=== PATIENT | male | born 1945 | race Two or more races ===

== ENCOUNTER → 2018-10-04 19:55 | Outpatient (CLI) | payer MEDICARE, BC | END | disposition home or self-care (01) | LOC: D.LABREF 19:55 | PROVIDERS: ATTEND Urology | DX: N39.0 Urinary tract infection, site not specified (principal) ==

== ENCOUNTER 2018-10-21 07:20 | Day surgery (SDC) | payer MEDICARE, BC ==
[2018-10-20 09:54] LABS: HEMATOCRIT 41.3 % (42.0-54.0); HEMOGLOBIN 13.6 g/dL (13.5-17.5); MCH 28.5 pg (26.0-34.0); MCHC 32.9 g/dL (31.0-37.0); MCV 86.4 fL (80.0-100.0); MEAN PLATELET VOLUME 9.4 fL (7.4-10.4); RBC 4.78 10x6/uL (4.20-6.10); RDW 14.4 % (11.5-14.5); WBC 9.4 10x3/uL (4.8-10.8)
[2018-10-20 10:08] LABS: CALC OSMOLALITY 279 mosm/kg (275-300); CALCIUM 8.4 mg/dL (8.5-10.1); CARBON DIOXIDE 30.8 mmol/L (21.0-32.0); CHLORIDE - SERUM 103 mmol/L (98-107); GLUCOSE 98 mg/dL (74-106); POTASSIUM - SERUM 3.2 mmol/L (3.5-5.1); SODIUM 140 mmol/L (136-145); UREA NITROGEN 14 mg/dL (7-18); eGFR NON AFRICAN AMERICAN 78 mL/min (90-120)
[~2018-10-21] VITALS: Ht 180.3 cm; Wt 156.5 kg
[~2018-10-21 07:20] MED LIST: AMBIEN10 MG PO; K-DUR20 MEQ PO; LASIX40 MG PO; NUVIGIL250 MG PO; PROZAC20 MG PO
[2018-10-21] MEDS ORDERED: HCTZ25 MG PO (09:06)
[2018-10-21 09:15] VITALS: BP 153/84; Ht 180.3 cm; Wt 156.5 kg
--- NOTE | 2018-10-21 12:17 | OP ---
PATIENT NAME: YOEL RING MEDICAL RECORD: [id number] :45 LOCATION:[facility] ADMISSION DATE: SURGEON: FERMIN GARZON MD DATE OF OPERATION: 10/21/2018 SURGEON: Fermin Garzon MD ANESTHESIA: TIVA by Jessie Blanchard CRNA. 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 IPSS equals 17. Quality of life is 4 with tamsulosin and finasteride. PVR 498 mL. DALILA 50 gram prostate. PROCEDURE: UroLift times 6, bladder stone removal. FINDINGS: Long lateral lobes, which are obstructive. No median lobe. Vascular prostatic urethra. Heavily trabeculated bladder with cellules, diverticula, and bladder stones. No bladder tumors. BLOOD LOSS: Minimal. CLINICAL HISTORY: This is a 73-year-old male, who came to see me about obstructive BPH voiding symptoms. He has been on Proscar and tamsulosin for over 2 years. The tamsulosin does make him dizzy. When we scanned his bladder after voiding, his postvoid residual was almost 500 mL. He has had an indwelling Martinez catheter since the office visit. He comes now to have the UroLift procedure done to treat the urinary retention. He is not allergic to any medications. He was given Ancef 2 grams tactical air control party to the OR. Last night, the patient developed gross hematuria and he removed his catheter himself as they got plugged up. He says he is voiding on his own. DESCRIPTION OF PROCEDURE: The patient was given IV sedation. He was then placed into the lithotomy position and prepped and draped. The UroLift scope was introduced. Findings are as outlined above. He has long lateral lobes, which are obstructive. In the bladder, we saw numerous small little bladder stones. I irrigated out and successfully drained out all of these bladder stones in turn. We then applied the UroLift units. The first units were placed at the bladder neck level, about 1.5 cm distal to the bladder neck. These were placed, one on each side, in the anterolateral sulcus. We then placed 2 units at the level of the verumontanum, again at the anterolateral sulcus. Looking in with the obturator, the mid prostatic urethra was still obstructive. We placed 2 more units at the mid prostatic urethra at the mid height between the anterior and posterior valenzuela. One unit was placed on each side. This gave a total of 6 units of UroLift. The prostatic urethra was now opened in the anterior urethral channel. There was a significant amount of bleeding from the highly vascular prostate. I inserted a 16-American Martinez catheter back into the bladder. Balloon was inflated with 10 cc of sterile water. I will see him back next week to remove the Martinez catheter for a voiding trial. TRANSINT:[id number] Voice Confirmation ID: [id number] DOCUMENT ID: [id number] OPERATIVE REPORT [id number] YOEL RING, FERMIN Malave MD at 1217 CC: [id number] DICTATION DATE: 10/21/18 1124 [address] RUNNER: 10/21/18 1213 [id number] [place] [address]
--- NOTE | 2018-10-21 14:08 | NUR ---
1305 ALL DC CRITERIA MET. CHANGED TO LEG BAG. ALL DC INSTRUCTIONS GIVEN. SCRIPT CALLED IN TO PHARMACY PER REQUEST. FOLLOW UP APPOINTMENT GIVEN. VOICES NO OTHER NEEDS. TAKEN DOWNSTAIRS VIA W/C AND ASSISTED TO CAR WITH . ADVISED TO CALL OR COME BACK IF ANY PROBLEMS.
== END 2018-10-21 13:05 | disposition home or self-care (01) ==
LOC: D.OPS 07:20 → EDBD 10:45 → D.OPS 13:05
PROVIDERS: Anesthesiology; ATTEND Urology
DX: N40.1 Benign prostatic hyperplasia with lower urinary tract symptoms (principal); N13.8 Other obstructive and reflux uropathy; N21.0 Calculus in bladder
CPT/HCPCS: C9740; 52310

== ENCOUNTER 2019-05-13 12:47 | Emergency (ER) | payer MEDICARE, BC ==
[~2019-05-13] VITALS: Ht 180.3 cm; Wt 161.4 kg
[~2019-05-13 12:47] MED LIST changes: +HCTZ25 MG PO
[2019-05-13 13:00] VITALS: Ht 180.3 cm; Wt 161.4 kg
[2019-05-13 14:21] LABS: BASOPHILS 0.1 % (0-2); EOSINOPHILS 2.6 % (0-7); HEMATOCRIT 40.6 % (42.0-54.0); IMMATURE GRANULOCYTES 0.4 % (0-5); LYMPHOCYTES 16.6 % (15-50); MCH 28.1 pg (26.0-34.0); MCV 87.9 fL (80.0-100.0); MEAN PLATELET VOLUME 9.4 fL (7.4-10.4); MONOCYTES 9.1 % (2-11); NEUTROPHILS 71.2 % (40-80); PLATELET COUNT 178 10x3/uL (130-400); RBC 4.62 10x6/uL (4.20-6.10); RDW 15.6 % (11.5-14.5); WBC 9.2 10x3/uL (4.8-10.8)
[2019-05-13 14:26] LABS: CALC OSMOLALITY 284 mosm/kg (275-300); CALCIUM 8.5 mg/dL (8.5-10.1); CARBON DIOXIDE 30.3 mmol/L (21.0-32.0); CHLORIDE - SERUM 105 mmol/L (98-107); GLUCOSE 95 mg/dL (74-106); POTASSIUM - SERUM 3.9 mmol/L (3.5-5.1); SODIUM 142 mmol/L (136-145); UREA NITROGEN 19 mg/dL (7-18); eGFR NON AFRICAN AMERICAN 78 mL/min (90-120)
[2019-05-13 14:29] LABS: PROTIME 13.2 SECONDS (11.6-15.0)
[2019-05-13 14:32] LABS: ALBUMIN 2.9 g/dL (3.4-5.0); ALKALINE PHOSPHATASE 93 U/L (30-120); ALT (SGPT) 16 U/L (10-68); BILIRUBIN - TOTAL 0.34 mg/dL (0.2-1.3); C-REACTIVE PROTEIN 2.4 mg/dL (0.0-0.9); PROTEIN - SERUM 7.2 g/dL (6.4-8.2)
[2019-05-13 16:07] VITALS: BP 114/60
== END 2019-05-13 16:08 | disposition home or self-care (01) ==
LOC: D.ER 12:47
PROVIDERS: Emergency Medicine
DX: R51 Headache (principal); Z84.89 Family history of other specified conditions; I10 Essential (primary) hypertension; I48.91 Unspecified atrial fibrillation; Z86.73 Personal history of transient ischemic attack (TIA), and cerebral infarction without residual deficits

== ENCOUNTER 2019-09-19 15:53 | Inpatient (IN) | payer MEDICARE, BC ==
[~2019-09-19] VITALS: Ht 180.3 cm; Wt 163.3 kg
[2019-09-19] VITALS (12 sets, daily range): BP systolic 88–131; BP diastolic 54–83
[2019-09-19 16:44] LABS: BASOPHILS 0.1 % (0-2); EOSINOPHILS 0.6 % (0-7); HEMATOCRIT 40.8 % (42.0-54.0); HEMOGLOBIN 13.1 g/dL (13.5-17.5); IMMATURE GRANULOCYTES 0.4 % (0-5); LYMPHOCYTES 5.1 % (15-50); MCH 28.1 pg (26.0-34.0); MCHC 32.1 g/dL (31.0-37.0); MCV 87.4 fL (80.0-100.0); MEAN PLATELET VOLUME 9.6 fL (7.4-10.4); NEUTROPHILS 81.8 % (40-80); RBC 4.67 10x6/uL (4.20-6.10); RDW 15.3 % (11.5-14.5); WBC 13.9 10x3/uL (4.8-10.8)
[2019-09-19 16:46] LABS: PLATELET COUNT 225 10x3/uL (130-400)
[2019-09-19 16:51] LABS: APTT 27.6 SECONDS (22.8-39.4); INR 1.07 (0.85-1.17); PROTIME 13.9 SECONDS (11.6-15.0)
[2019-09-19 17:13] LABS: ALBUMIN 2.3 g/dL (3.4-5.0); ALKALINE PHOSPHATASE 94 U/L (30-120); ALT (SGPT) 43 U/L (10-68); BILIRUBIN - TOTAL 0.36 mg/dL (0.2-1.3); CALC OSMOLALITY 275 mosm/kg (275-300); CALCIUM 8.2 mg/dL (8.5-10.1); CARBON DIOXIDE 32.3 mmol/L (21.0-32.0); CHLORIDE - SERUM 98 mmol/L (98-107); CKMB 0.5 U/L (0.0-3.6); CREATINE KINASE 81 UL (21-232); CREATININE - SERUM 1.5 mg/dL (0.6-1.3); GLUCOSE 107 mg/dL (74-106); PROTEIN - SERUM 7.1 g/dL (6.4-8.2); SODIUM 135 mmol/L (136-145); TROPONIN-I < 0.017 ng/mL (0.000-0.060); UREA NITROGEN 30 mg/dL (7-18); eGFR NON AFRICAN AMERICAN 49 mL/min (90-120)
[2019-09-19 17:19] LABS: POTASSIUM - SERUM 2.7 mmol/L (3.5-5.1)
[2019-09-20] VITALS (9 sets, daily range): BP systolic 99–155; BP diastolic 53–80; BMI 48.9
[2019-09-20 00:32] LABS: % SATURATION 7 % (15-55); IRON 18 ug/dl (35-150); TOTAL IRON BIND CAPACITY 231 ug/dl (260-445); UNSAT IRON BIND CAPACITY 213 ug/dl (150-375)
[2019-09-20 00:48] LABS: CKMB 0.6 U/L (0.0-3.6); CREATINE KINASE 80 UL (21-232); TROPONIN-I < 0.017 ng/mL (0.000-0.060)
--- NOTE | 2019-09-20 02:25 | NUR ---
PT REQUEST ASSISTANCE TO RESTROOM. REFUSES TO ATTEMPT URINAL OR BEDSIDE COMMODE DESPITE WARNINGS HE MIGHT FALL. ASSISTED PT TO WHEELCHAIR AND TO BATHROOM. PT UNSTEADY BUT DOES TRANSITION FROM BED TO CHAIR, CHAIR TO COMMODE, AND BACK TO BED.
[2019-09-20 04:41] LABS: BASOPHILS 0.1 % (0-2); EOSINOPHILS 0.7 % (0-7); HEMATOCRIT 39.4 % (42.0-54.0); HEMOGLOBIN 12.5 g/dL (13.5-17.5); IMMATURE GRANULOCYTES 0.4 % (0-5); LYMPHOCYTES 5.6 % (15-50); MCH 28.1 pg (26.0-34.0); MCHC 31.7 g/dL (31.0-37.0); MCV 88.5 fL (80.0-100.0); MEAN PLATELET VOLUME 9.5 fL (7.4-10.4); NEUTROPHILS 84.2 % (40-80); PLATELET COUNT 217 10x3/uL (130-400); RBC 4.45 10x6/uL (4.20-6.10); RDW 15.3 % (11.5-14.5); WBC 13.6 10x3/uL (4.8-10.8)
--- NOTE | 2019-09-20 05:00 | NUR ---
RESTING QUIETLY WITH EYES CLOSED. RESP. EVEN AND UNLAB. NO DISTRESS NOTED.
[2019-09-20 05:22] LABS: ALBUMIN 2.1 g/dL (3.4-5.0); ALKALINE PHOSPHATASE 89 U/L (30-120); ALT (SGPT) 38 U/L (10-68); BILIRUBIN - TOTAL 0.32 mg/dL (0.2-1.3); CALC OSMOLALITY 276 mosm/kg (275-300); CALCIUM 7.6 mg/dL (8.5-10.1); CARBON DIOXIDE 31.7 mmol/L (21.0-32.0); CHLORIDE - SERUM 98 mmol/L (98-107); CKMB 0.9 U/L (0.0-3.6); CREATINE KINASE 87 UL (21-232); CREATININE - SERUM 1.2 mg/dL (0.6-1.3); GLUCOSE 151 mg/dL (74-106); MAGNESIUM - SERUM 2.1 mg/dL (1.8-2.4); PHOSPHOROUS 2.8 mg/dL (2.5-4.9); PROTEIN - SERUM 6.7 g/dL (6.4-8.2); SODIUM 135 mmol/L (136-145); UREA NITROGEN 24 mg/dL (7-18); eGFR NON AFRICAN AMERICAN 63 mL/min (90-120)
[2019-09-20 05:23] LABS: POTASSIUM - SERUM 2.7 mmol/L (3.5-5.1); TROPONIN-I < 0.017 ng/mL (0.000-0.060)
--- NOTE | 2019-09-20 05:47 | NUR ---
POTASSIUM 2.7 STILL ORAL POTASSIUM 20MEQ GIVEN. PT STILL HAS POTASSIUM IN IV BAG.
--- NOTE | 2019-09-20 07:22 | NUR ---
ASSUMED CARE OF PT. SITTING UP IN WC AT BS. C/O "MILD ABD PAIN" VSS. RESP EVEN/UNALBORED. SKIN W/D/P. NAD NOTED
[2019-09-20 12:18] LABS: CKMB 0.6 U/L (0.0-3.6); CREATINE KINASE 80 UL (21-232); TROPONIN-I < 0.017 ng/mL (0.000-0.060)
--- NOTE | 2019-09-20 14:30 | NUR ---
BLOOD COMPLTED WITHOUT ADVERSE REACTIONS NOTED.
--- NOTE | 2019-09-20 14:37 | NUR ---
report to jenny young
--- NOTE | 2019-09-20 14:50 | NUR ---
TRANSFER FROM ER BY W/C. JIGNESHINTED TO ROOM. CALL LIGHT IN REACH. WILL CONT. PLAN OF CARE.
[2019-09-20 15:38] LABS: MAGNESIUM - SERUM 2.2 mg/dL (1.8-2.4)
[2019-09-20 15:45] LABS: POTASSIUM - SERUM 3.5 mmol/L (3.5-5.1)
--- NOTE | 2019-09-20 19:45 | NUR ---
REPORT RECEIVED AND ROUNDING COMPLETE. PAITENT SITTING UP IN BED. PAITENT SHOWS NO S/SX OF DISTRESS AT THIS TIME. RIGHT FOREARM PIV RUNNING FUILDS AT THSI TIME. NO NEEDS, CALL LIGTH WITHIN REACH AND BED IN LOWEST LOCKED POSITION.
[2019-09-21 04:34] VITALS: BP 120/77
--- NOTE | 2019-09-21 06:14 | NUR ---
PATIENT ASKED ME TO LISTEN, HE IS HAS EX- WHEEZING BILATERAL UPPER. WILL PASS ON TO DAY SHIFT
[2019-09-21 06:46] LABS: ALKALINE PHOSPHATASE 89 U/L (30-120); ALT (SGPT) 30 U/L (10-68); BILIRUBIN - TOTAL 0.35 mg/dL (0.2-1.3); CALCIUM 7.4 mg/dL (8.5-10.1); CARBON DIOXIDE 30.4 mmol/L (21.0-32.0); CHLORIDE - SERUM 100 mmol/L (98-107); GLUCOSE 110 mg/dL (74-106); MAGNESIUM - SERUM 2.1 mg/dL (1.8-2.4); POTASSIUM - SERUM 3.3 mmol/L (3.5-5.1); PROTEIN - SERUM 6.3 g/dL (6.4-8.2); SODIUM 135 mmol/L (136-145); UREA NITROGEN 16 mg/dL (7-18); eGFR NON AFRICAN AMERICAN 78 mL/min (90-120)
[2019-09-21 06:47] LABS: CALC OSMOLALITY 271 mosm/kg (275-300)
[2019-09-21 06:53] LABS: BASOPHILS 0.1 % (0-2); HEMATOCRIT 38.6 % (42.0-54.0); HEMOGLOBIN 11.9 g/dL (13.5-17.5); IMMATURE GRANULOCYTES 0.9 % (0-5); LYMPHOCYTES 6.5 % (15-50); MCH 27.7 pg (26.0-34.0); MCHC 30.8 g/dL (31.0-37.0); MCV 89.8 fL (80.0-100.0); MEAN PLATELET VOLUME 9.8 fL (7.4-10.4); MONOCYTES 7.5 % (2-11); PLATELET COUNT 213 10x3/uL (130-400); RDW 15.7 % (11.5-14.5); WBC 13.4 10x3/uL (4.8-10.8)
--- NOTE | 2019-09-21 08:00 | NUR ---
LEAVING FOR SBFT BY W/C.
[2019-09-21 11:00] VITALS: BP 137/83
[2019-09-21 13:30] VITALS: Ht 180.3 cm; Wt 163.3 kg
--- NOTE | 2019-09-21 14:58 | NUR ---
IV RESTARTED TO RIGHT AC WITH 20 GAUGE CATH X 1 STICK BY ANDREZ TAPIA. LINE IS PATENT.
[2019-09-21 15:00] VITALS: BP 104/57
[2019-09-21 20:00] VITALS: BP 106/58
--- NOTE | 2019-09-21 20:00 | NUR ---
CARDIZEM DRIP STOPPED. 64 HR CONTROLLED AFIB.
[2019-09-22 04:00] VITALS: BP 114/62
[2019-09-22 06:34] LABS: BASOPHILS 0.1 % (0-2); EOSINOPHILS 1.3 % (0-7); HEMATOCRIT 38.9 % (42.0-54.0); IMMATURE GRANULOCYTES 1.3 % (0-5); LYMPHOCYTES 4.9 % (15-50); MCH 27.8 pg (26.0-34.0); MCHC 30.8 g/dL (31.0-37.0); MCV 90.3 fL (80.0-100.0); MEAN PLATELET VOLUME 9.7 fL (7.4-10.4); MONOCYTES 7.2 % (2-11); NEUTROPHILS 85.2 % (40-80); RBC 4.31 10x6/uL (4.20-6.10); RDW 15.9 % (11.5-14.5); WBC 15.1 10x3/uL (4.8-10.8)
[2019-09-22 06:35] LABS: PLATELET COUNT 297 10x3/uL (130-400)
[2019-09-22 06:44] LABS: ALKALINE PHOSPHATASE 106 U/L (30-120); ALT (SGPT) 29 U/L (10-68); BILIRUBIN - TOTAL 0.22 mg/dL (0.2-1.3); CALC OSMOLALITY 279 mosm/kg (275-300); CALCIUM 8.3 mg/dL (8.5-10.1); CARBON DIOXIDE 28.5 mmol/L (21.0-32.0); CHLORIDE - SERUM 105 mmol/L (98-107); GLUCOSE 118 mg/dL (74-106); MAGNESIUM - SERUM 2.2 mg/dL (1.8-2.4); POTASSIUM - SERUM 3.6 mmol/L (3.5-5.1); PROTEIN - SERUM 6.6 g/dL (6.4-8.2); SODIUM 139 mmol/L (136-145); UREA NITROGEN 15 mg/dL (7-18); eGFR NON AFRICAN AMERICAN 78 mL/min (90-120)
[2019-09-22 09:00] VITALS: BP 129/66
[2019-09-22 11:00] VITALS: BP 111/56
--- NOTE | 2019-09-22 13:02 | NUR ---
TELEMETRY SB 57 BBB.
[2019-09-22] MEDS ORDERED: CARDIZEM CD180 MG PO (13:43)
[2019-09-22] MEDS ORDERED: BETAPACE 80 MG80 MG PO (13:43)
[2019-09-22] MEDS ORDERED: LEVAQUIN750 MG PO (13:43)
[2019-09-22] MEDS ORDERED: FLAGYL500 MG PO (13:44)
--- NOTE | 2019-09-22 15:36 | NUR ---
IV AND TELEMETRY DCD. DC PLANS GIVEN. UNDERSTANDING VOICED. ESCORTED TO CAR BY W/C.
== END 2019-09-22 15:37 | disposition home or self-care (01) | DRG 309 ==
LOC: D.ER 15:53 → D.EDHOLD 18:39 → D.M2 18:39
PROVIDERS: Family Medicine; ADMIT Family Medicine Adult Medicine; ATTEND Family Medicine Adult Medicine
DX: I48.20 Chronic atrial fibrillation, unspecified (principal); N17.9 Acute kidney failure, unspecified; E87.6 Hypokalemia; K52.9 Noninfective gastroenteritis and colitis, unspecified; D64.9 Anemia, unspecified; I10 Essential (primary) hypertension; I51.7 Cardiomegaly; R91.1 Solitary pulmonary nodule; Z86.73 Personal history of transient ischemic attack (TIA), and cerebral infarction without residual deficits